=== PATIENT | female | born 1990 | race African-American/Black ===

== ENCOUNTER 2017-05-24 07:05 | Emergency (ER) | payer OTHER ==
[~2017-05-24] VITALS: Ht 157.5 cm; Wt 61.2 kg
[~2017-05-24 07:05] MED LIST: IBUPROFEN 600600 M1 PO; LORTAB 5 MG/5001 TA1 PO; MOBIC15 MG PO; ZOFRAN ODT4 MG PO
[2017-05-24 07:06] VITALS: BP 120/77
[2017-05-24] MEDS ORDERED: NAPROSYN500 MG PO (07:42)
== END 2017-05-24 08:07 | disposition home or self-care (01) ==
LOC: ER 07:05
DX: J02.8 Acute pharyngitis due to other specified organisms (principal); B97.89 Other viral agents as the cause of diseases classified elsewhere; F17.210 Nicotine dependence, cigarettes, uncomplicated; F10.99 Alcohol use, unspecified with unspecified alcohol-induced disorder; Z88.1 Allergy status to other antibiotic agents

== ENCOUNTER 2020-06-12 17:18 | Emergency (ER) | payer OTHER ==
[~2020-06-12] VITALS: Ht 157.5 cm; Wt 78.5 kg
[~2020-06-12 17:18] MED LIST changes: +AZITHROMYCIN 2250 MG PO; +NAPROSYN500 MG PO; +SUPRAX400 M1 PO
[2020-06-12 18:03] LABS: HEMATOCRIT 41.7 % (37.0-47.0); HEMOGLOBIN 13.7 gm/dL (12.0-15.0); MCHC 32.8 g/dL (28.0-37.0); MCV 88.4 fL (80.0-100.0); RBC 4.72 mil/uL (4.20-5.00); RDW 12.8 % (10.5-14.5); WBC 5.6 thou/uL (4.0-11.0)
[2020-06-12 18:08] LABS: URINE BILIRUBIN NEGATIVE (Negative); URINE BLOOD 1+ (Negative); URINE CLARITY CLEAR; URINE COLOR YELLOW; URINE GLUCOSE-RANDOM* NEGATIVE (Negative); URINE KETONES TRACE (Negative); URINE LEUKOCYTES-REFLEX NEGATIVE (Negative); URINE NITRITE-REFLEX NEGATIVE (Negative); URINE PROTEIN (DIPSTICK) NEGATIVE (Negative); URINE SPECIFIC GRAVITY >= 1.030 (1.005-1.035)
[2020-06-12 18:11] LABS: CALCIUM 9.2 mg/dL (8.5-10.1); CREATININE 1.1 mg/dL (0.6-1.0); POTASSIUM 3.6 mmol/L (3.5-5.1)
[2020-06-12 18:20] LABS: SQUAMOUS 4-10 Moderate /LPF (0-3); URINE WBC-REFLEX 0-5 Rare /HPF (0-5)
[2020-06-12 18:21] LABS: CASTS None Seen /LPF (None Seen); CRYSTALS None Seen /LPF (None Seen); MUCUS 0-3 Light strn/LPF (None Seen); URINE RBC 3-10 Few /HPF (0-2)
[2020-06-12] MEDS ORDERED: MACROBID 100 M100 M1 PO (18:49)
[2020-06-12] MEDS ORDERED: PROAIR HFA8.5 GM INH (18:53)
[2020-06-12 18:56] VITALS: BP 124/74
== END 2020-06-12 18:56 | disposition home or self-care (01) ==
LOC: ER 17:18
PROVIDERS: Physician Assistant
DX: N39.0 Urinary tract infection, site not specified (principal); R05 Cough; R06.02 Shortness of breath; F17.210 Nicotine dependence, cigarettes, uncomplicated; Z88.1 Allergy status to other antibiotic agents; Z20.828 Contact with and (suspected) exposure to other viral communicable diseases

== ENCOUNTER 2020-07-17 20:40 | Emergency (ER) | payer OTHER ==
[~2020-07-17] VITALS: Ht 154.9 cm; Wt 79.4 kg
[~2020-07-17 20:40] MED LIST changes: +MACROBID 100 M100 M1 PO; +PROAIR HFA8.5 GM INH
[2020-07-17 21:27] LABS: URINE BILIRUBIN NEGATIVE (Negative); URINE BLOOD TRACE (Negative); URINE CLARITY CLEAR; URINE COLOR YELLOW; URINE GLUCOSE-RANDOM* NEGATIVE (Negative); URINE KETONES NEGATIVE (Negative); URINE LEUKOCYTES-REFLEX NEGATIVE (Negative); URINE NITRITE-REFLEX NEGATIVE (Negative); URINE PROTEIN (DIPSTICK) 1+ (Negative); URINE UROBILINOGEN 0.2 E.U./dl (0.2-1.0)
[2020-07-17 21:36] LABS: SQUAMOUS 0-3 Few /LPF (0-3)
[2020-07-17 21:37] LABS: BACTERIA-REFLEX 1-9 Few /HPF (None Seen); CASTS None Seen /LPF (None Seen); CRYSTALS None Seen /LPF (None Seen); URINE RBC 0-2 Rare /HPF (0-2); URINE WBC-REFLEX None Seen /HPF (0-5)
[2020-07-18] MEDS ORDERED: ZOFRAN ODT4 MG PO (00:33)
[2020-07-18 01:13] VITALS: BP 133/76
== END 2020-07-18 01:13 | disposition home or self-care (01) ==
LOC: ER 20:40
PROVIDERS: Physician Assistant
DX: R11.2 Nausea with vomiting, unspecified (principal); F17.210 Nicotine dependence, cigarettes, uncomplicated; Z88.1 Allergy status to other antibiotic agents

== ENCOUNTER → 2021-10-20 | Emergency (ER) | payer OTHER ==
[~2021-10-20] VITALS: Ht 157.5 cm; Wt 78.9 kg
[~2021-10-20] MED LIST changes: +BACTRIM DS TAB1 EAC1 PO
[2021-10-20 12:57] VITALS: BP 139/77
== END ==
LOC: ER 12:56
DX: L03.317 Cellulitis of buttock (principal); F17.210 Nicotine dependence, cigarettes, uncomplicated; F12.90 Cannabis use, unspecified, uncomplicated; Z98.890 Other specified postprocedural states; Z79.899 Other long term (current) drug therapy; Z88.1 Allergy status to other antibiotic agents